=== PATIENT | female | born 1935 | race Caucasian/White ===

== ENCOUNTER 2016-08-22 12:22 | Outpatient (CLI) | payer MEDICARE, OTHER ==
[~2016-08-22] VITALS: Ht 157.5 cm; Wt 43.2 kg
[2016-08-22 12:45] VITALS: BP 114/55; Ht 157.5 cm; Wt 43.2 kg
--- NOTE | 2016-08-22 13:07 | NUR ---
1307 DISCHARGED TO HOME AND INSTRUCTIONS GIVEN AND VERBALLY UNDERSTANDS.
--- NOTE | 2016-08-22 13:07 | NUR ---
1301 ASSESMENT COMPLETE. EXPLAINED PROLIA AND INFORMATION PROVIDED. PROLIA 60 MG TIME CLERK RT ARM SUBCUTANEOUS SITE CLEAR.
== END 2016-08-22 13:07 | disposition home or self-care (01) ==
LOC: D.OPS 12:22
DX: M81.0 Age-related osteoporosis without current pathological fracture (principal)

== ENCOUNTER → 2016-10-19 14:50 | Outpatient (CLI) | payer MEDICARE, OTHER ==
[2016-08-22 12:45] VITALS: BMI 17.4
== END | disposition home or self-care (01) ==
LOC: D.LAB 14:50
PROVIDERS: Family Medicine
DX: R19.7 Diarrhea, unspecified (principal)

== ENCOUNTER → 2016-12-24 12:31 | Outpatient (CLI) | payer MEDICARE, OTHER ==
[2016-08-22 12:45] VITALS: BMI 17.4
== END | disposition home or self-care (01) ==
LOC: D.MAMMO 11:00
DX: Z85.3 Personal history of malignant neoplasm of breast (principal)

== ENCOUNTER → 2018-01-16 20:52 | Outpatient (CLI) | payer MEDICARE, OTHER ==
[2016-08-22 12:45] VITALS: BMI 17.4
== END | disposition home or self-care (01) ==
LOC: D.MAMMO 10:30
DX: Z85.3 Personal history of malignant neoplasm of breast (principal)

== ENCOUNTER → 2019-02-17 11:30 | Outpatient (CLI) | payer MEDICARE, OTHER ==
[2016-08-22 12:45] VITALS: BMI 17.4
== END | disposition home or self-care (01) ==
LOC: D.MAMMO 11:30
PROVIDERS: ATTEND Family Medicine
DX: Z85.3 Personal history of malignant neoplasm of breast (principal); R92.8 Other abnormal and inconclusive findings on diagnostic imaging of breast